=== PATIENT | male | born 1970 | race Caucasian/White ===

== ENCOUNTER → 2018-01-04 | Outpatient (CLI) | payer OTHER | LOC: CAT | DX: Z13.6 Encounter for screening for cardiovascular disorders (principal); E78.00 Pure hypercholesterolemia, unspecified ==

== ENCOUNTER → 2018-01-04 | Outpatient (CLI) | payer OTHER | LOC: ULTRA 12:05 | DX: R22.1 Localized swelling, mass and lump, neck (principal) ==